=== PATIENT | male | born 1935 | race Caucasian/White ===

== ENCOUNTER 2020-08-08 16:00 | Emergency (ER) | payer MEDICARE, BC | END 2020-08-08 17:22 | disposition left against medical advice (07) | LOC: DL.ED 16:00 | DX: Z53.21 Procedure and treatment not carried out due to patient leaving prior to being seen by health care provider (principal) ==

== ENCOUNTER 2020-08-09 10:26 | Emergency (ER) | payer MEDICARE, BC ==
[2020-08-09 12:04] LABS: ANION GAP 10.3 mEq/L (7-13); CHLORIDE,CL 99 mmol/L (98-107); SODIUM,NA 135 mmol/L (136-145)
[2020-08-09] MEDS: Lidocaine 2% Jelly 10 ML Urojet MUCMEM ONE ×2 (12:56→13:52)
[2020-08-09 13:43] VITALS: BP 102/83; PULSE 66
--- NOTE | 2020-08-09 13:45 | EDM.PDOC ---
Scribed by Rosamaria Broussard 08/09/20 [id number] for Miriam Apple MD ED HPI GENERAL MEDICAL PROBLEM - General Chief Complaint: Genitourinary Problem Stated Complaint: KIDNEYS, UTI, Time Seen by Provider: 08/09/20 11:18 Source of Information: Reports: Patient, RN, RN Notes Reviewed History Limitations: Reports: No Limitations - History of Present Illness INITIAL COMMENTS - FREE TEXT/NARRATIVE: Patient presents to ED stating he was to clinic yesterday for burning with urination and poor urine output. No hematuria until they tried to unsuccessfully cath him. They did send him to ER at that time yesterday, because they did not have a coude cath. He had temp at clinic of 101.9F and then at home of 103.1F. He does have BPH and is on an alpha nilesh which he has not taken today or yesterday, he is not sure why. He denies any back pain, but has some left low pubic pain. Denies body aches, sob, cough, or any covid symptoms. Denies any COVID testing. Patient notes pain about half an hour prior to having to urinate as well as with urinating. No pain outside of this time. Patient has been having discomfort and raw skin in his private area for the last 2 weeks. Onset: Gradual Duration: Getting Worse Quality: Reports: Ache Severity: Severe Improves with: Reports: None Worsens with: Reports: None Associated Symptoms: Reports: No Other Symptoms - Related Data Allergies Allergy/AdvReac Type Severity Reaction Status Date / Time No Known Allergies Allergy Verified 10/04/18 12:45 Home Meds: Home Meds Aspirin [Adult Low Dose Aspirin EC] 81 mg PO DAILY 09/10/15 [History] Doxazosin [Cardura] 2 mg PO BEDTIME 09/10/15 [History] Dutasteride [Avodart] 0.5 mg PO DAILY 09/10/15 [History] Hydrochlorothiazide/Lisinopril [Lisinopril/HCTZ 20-12.5 MG] 1 tab PO DAILY 09/10/15 [History] Simvastatin [Zocor] 20 mg PO BEDTIME 09/10/15 [History] Past Medical History Cardiovascular History: Reports: High Cholesterol, Hypertension Genitourinary History: Reports: BPH, Prostate Disorder Social & Family History - Family History Family Medical History: Noncontributory - Tobacco Use Smoking Status *Q: Current Every Day Smoker Years of Tobacco use: 70 Packs/Tins Daily: 1 - Caffeine Use Caffeine Use: Reports: Coffee - Recreational Drug Use Recreational Drug Use: No - Living Situation & Occupation Occupation: Retired ED ROS GENERAL - Review of Systems Review Of Systems: Comprehensive ROS is negative, except as noted in HPI. ED EXAM, RENAL/ - Physical Exam Exam: See Below Exam Limited By: No Limitations General Appearance: Alert, WD/WN, No Apparent Distress Eye Exam: Bilateral Eye: EOMI, Normal Inspection, PERRL Ears: Normal External Exam, Hearing Grossly Normal Nose: Normal Inspection, Normal Mucosa, No Blood Throat/Mouth: Normal Inspection, Normal Lips, Normal Gums, Normal Oropharynx, Normal Voice, No Airway Compromise Head: Atraumatic, Normocephalic Neck: Normal Inspection, Supple, Non-Tender, Full Range of Motion Respiratory/Chest: No Respiratory Distress, Lungs Clear, Normal Breath Sounds, No Accessory Muscle Use, Chest Non-Tender Cardiovascular: Normal Peripheral Pulses, Regular Rate, Rhythm, No Edema, No Gallop, No JVD, No Murmur, No Rub GI/Abdominal: Normal Bowel Sounds, Soft, Non-Tender, No Organomegaly, No Distention, No Abnormal Bruit, No Mass (Male) Exam: Deferred Rectal (Males) Exam: Other (tender and boggy prostate) Back Exam: Normal Inspection, Full Range of Motion, NT Extremities: Normal Inspection, Normal Range of Motion, Non-Tender, Normal Capillary Refill, No Pedal Edema Neurological: Alert, Oriented, CN II-XII Intact, Normal Cognition, Normal Gait, Normal Reflexes, No Motor/Sensory Deficits Psychiatric: Normal Affect, Normal Mood Skin Exam: Warm, Dry, Intact, Normal Color, No Rash Lymphatic: No Adenopathy Course - Orders/Labs/Meds Orders: Active Orders 24 hr Category Date Time Status Bladder Scan [RC] ASDIRECTED Care 08/09/20 11:20 Active CULTURE BLOOD [BC] Stat Lab 08/09/20 11:23 Ordered CULTURE BLOOD [BC] Stat Lab 08/09/20 11:23 Ordered CULTURE URINE [RM] Stat Lab 08/09/20 12:51 Received Blood Culture x2 Reflex Set [OM.PC] Stat Oth 08/09/20 11:23 Ordered Labs: Laboratory Tests 08/09/20 08/09/20 08/09/20 Range/Units 11:35 11:35 12:51 WBC 20.8 H (5.0-10.0) 10^3/uL RBC 4.64 (4.6-6.2) 10^6/uL Hgb 15.3 (14.0-18.0) g/dL Hct 44.0 (40.0-54.0) % MCV 94.8 (80-100) fL MCH 33.0 (27.0-34.0) pg MCHC 34.8 (33.0-35.0) g/dL Plt Count 231 (150-450) 10^3/uL Neut % (Auto) 83.6 H (42.2-75.2) % Lymph % (Auto) 6.3 L (20.5-50.1) % [place] % (Auto) 9.8 H (2-8) % Eos % (Auto) 0.2 L (1.0-3.0) % Baso % (Auto) 0.1 (0.0-1.0) % Sodium 135 L (136-145) mmol/L Potassium 4.3 (3.5-5.1) mmol/L Chloride 99 (98-107) mmol/L Carbon Dioxide 30 (21-32) mmol/L Anion Gap 10.3 (7-13) mEq/L BUN 19 H (7-18) mg/dL Creatinine 1.39 H (0.70-1.30) mg/dL Est Cr Clr Drug Dosing TNP Estimated GFR (MDRD) 49 BUN/Creatinine Ratio 13.7 (No establ ref range) Glucose 124 H (74-99) mg/dL Calcium 9.1 (8.5-10.1) mg/dL Total Bilirubin 0.9 (0.2-1.0) mg/dL AST 14 L (15-37) U/L ALT 19 (16-63) U/L Alkaline Phosphatase 83 (46-116) U/L Total Protein 7.1 (6.4-8.2) g/dL Albumin 3.3 L (3.4-5.0) g/dL Globulin 3.8 Albumin/Globulin Ratio 0.87 Urine Color Yellow (YELLOW) Urine Appearance Cloudy (CLEAR) Urine pH 6.0 (5.0-9.0) Ur Specific [place] 1.025 (1.005-1.030) Urine Protein 100 H (NEGATIVE) Urine Glucose (UA) Negative (NEGATIVE) Urine Ketones Negative (NEGATIVE) Urine Occult Blood Moderate H (NEGATIVE) Urine Nitrite Negative (NEGATIVE) Urine Bilirubin Negative (NEGATIVE) Urine Urobilinogen 0.2 (0.2-1.0) mg/dL Ur Leukocyte Esterase Large H (NEGATIVE) Urine RBC 5-10 H /HPF Urine WBC Semi-packed H (0-5/HPF) /HPF Ur Epithelial Cells Few (NOT SEEN) /HPF Urine Bacteria Many H (0-FEW/HPF) /HPF Urine Mucus Not seen (NOT SEEN) /LPF Urine Other Meds: Medications Discontinued Medications Generic Name Dose Route Start Last Admin Trade Name Freq PRN Reason Stop Dose Admin Lidocaine HCl 10 ml 08/09/20 12:46 08/09/20 12:56 Xylocaine 2% Jelly MUCMEM 08/09/20 12:47 10 ml ONETIME ONE Administration Departure - Departure Time of Disposition: 13:43 Disposition: Home, Self-Care 01 Condition: Good Clinical Impression: Prostatitis - Discharge Information *PRESCRIPTION DRUG MONITORING PROGRAM REVIEWED*: Not Applicable *COPY OF PRESCRIPTION DRUG MONITORING REPORT IN PATIENT FÉLIX: Not Applicable Instructions: Prostatitis, [id number] Forms: ED Department Discharge Additional Instructions: Ciprofloxacin 500 mg BID for 6 weeks Follow up with PCP in 3-5 days - My Orders Last 24 Hours: My Active Orders 08/09/20 11:20 Bladder Scan [RC] ASDIRECTED 08/09/20 11:23 CULTURE BLOOD [BC] Stat CULTURE BLOOD [BC] Stat Blood Culture x2 Reflex Set [OM.PC] Stat 08/09/20 12:51 CULTURE URINE [RM] Stat - Assessment/Plan Last 24 Hours: My Active Orders 08/09/20 11:20 Bladder Scan [RC] ASDIRECTED 08/09/20 11:23 CULTURE BLOOD [BC] Stat CULTURE BLOOD [BC] Stat Blood Culture x2 Reflex Set [OM.PC] Stat 08/09/20 12:51 CULTURE URINE [RM] Stat Assessment:: 84 yo male with acute urinary tract infection, suspect prostatitis given history, labs and exam Plan: ciprofloxacin 500 mg BID for 6 weeks reviewed reasons to call/return to the ER fu with PCP in 3-5 days, or sooner if needed I have read and agree with the documentation that has been completed regarding this visit. By signing this record, I attest that the documentation was completed in my physical presence and is an accurate record of the encounter.
== END 2020-08-09 13:52 | disposition home or self-care (01) ==
LOC: DL.ED 10:26
DX: N41.9 Inflammatory disease of prostate, unspecified (principal); F17.210 Nicotine dependence, cigarettes, uncomplicated; E78.00 Pure hypercholesterolemia, unspecified; I10 Essential (primary) hypertension; Z79.82 Long term (current) use of aspirin; Z79.899 Other long term (current) drug therapy
CPT/HCPCS: 36415; 80053; 81001; 85025; 87040; 87086; 87088; 87186; 99283; 99284

== ENCOUNTER 2023-03-07 10:37 | Inpatient (IN) | payer MEDICARE, OTHER ==
[2023-03-07] MEDS ORDERED: Sodium Chloride 0.9% 10 ML Syringe FLUSH PRN (10:43)
[2023-03-07 11:01] LABS: BASOPHILS PERCENT AUTO 0.1 % (0.0-1.0); EOSINOPHILS PERCENT AUTO 0.4 % (1.0-3.0); HEMATOCRIT 38.4 % (40.0-54.0); HEMOGLOBIN 13.2 g/dL (14.0-18.0); LYMPHOCYTES PERCENT AUTO 7.8 % (20.5-50.1); MEAN CORPUSCULAR HEMOGLOBIN 32.4 pg (27.0-34.0); MEAN CORPUSCULAR HGB CONC 34.4 g/dL (33.0-35.0); MEAN CORPUSCULAR VOLUME 94.1 fL (80-100); MONOCYTES PERCENT AUTO 13.6 % (2-8); NEUTROPHILS PERCENT AUTO 78.1 % (42.2-75.2); PLATELET COUNT,PLT 272 10^3/uL (150-450); RED BLOOD CELL COUNT 4.08 10^6/uL (4.6-6.2); WHITE BLOOD CELL COUNT,WBC 13.6 10^3/uL (5.0-10.0)
[2023-03-07] MEDS ORDERED: Sodium Chloride 0.9% 1,000 ML IV ONE (11:16)
[2023-03-07 11:20] LABS: PROTHROMBIN TIME 10.4 SEC (9.0-12.0); PTT,PARTIAL THROMBOPLSTIN TIME 28.4 SEC (22.0-34.0)
[2023-03-07 11:21] LABS: B-TYPE NATRIURETIC PEPTIDE,BNP 443 pg/ml (0-100)
[2023-03-07 11:24] LABS: LACTIC ACID 1.7 mmol/L (0.4-2.0)
[2023-03-07 11:27] LABS: A/G RATIO 0.78; ALANINE AMINOTRANSFERASE,ALT 14 U/L (16-63); ALBUMIN 2.8 g/dL (3.4-5.0); ALKALINE PHOSPHATASE 77 U/L (46-116); AMYLASE 31 U/L (25-115); ANION GAP 14.8 mEq/L (7-13); ASPARTATE AMNIOTRANSFERASE,AST 15 U/L (15-37); BILIRUBIN TOTAL 0.8 mg/dL (0.2-1.0); BLOOD UREA NITROGEN,BUN 43 mg/dL (7-18); BUN/CREATININE RATIO 16.7 (No establ ref range); C-REACTIVE PROTEIN 16.9 mg/dL (0.0-0.9); CARBON DIOXIDE,CO2 27 mmol/L (21-32); CHLORIDE,CL 99 mmol/L (98-107); CREATININE 2.58 mg/dL (0.70-1.30); EST CRCL DRUG DOSING (CG) 20.43 mL/min; ESTIMATED GFR 23 mL/min (>=60); ETHANOL BLOOD MEDICAL < 3 mg/dL (0); GLUCOSE RANDOM 128 mg/dL (70-99); LIPASE 24 U/L (73-393); MAGNESIUM 1.2 mg/dL (1.8-2.4); PHOSPHORUS 3.7 mg/dL (2.6-4.7); POTASSIUM,K 3.8 mmol/L (3.5-5.1); PROTEIN TOTAL,TP 6.4 g/dL (6.4-8.2); SODIUM,NA 137 mmol/L (136-145)
[2023-03-07] MEDS ORDERED: Magnesium Oxide 400 MG Tab PO ONE (12:15)
[2023-03-07] MEDS ORDERED: Magnesium Hydroxide 400 MG/5 ML Susp 30 ML Cup PO PRN (12:57)
[2023-03-07] MEDS ORDERED: Acetaminophen 325 MG Tab PO PRN (12:57)
[2023-03-07] MEDS ORDERED: Acetaminophen/HYDROcodone 325-5 MG Tab PO PRN (12:57)
[2023-03-07] MEDS ORDERED: HYDROmorphone 0.5 MG/0.5 ML Syringe IVPUSH PRN (12:57)
[2023-03-07] MEDS ORDERED: Bisacodyl 5 MG Tab PO PRN (12:57)
[2023-03-07] MEDS ORDERED: Ondansetron 4 MG/2 ML SDV IVPUSH PRN (12:57)
[2023-03-07] MEDS ORDERED: Polyethylene Glycol 3350 Powder 17 GM Packet PO PRN (12:57)
[2023-03-07] MEDS ORDERED: Midodrine 2.5 MG Tab PO PRN (13:42)
[2023-03-07] MEDS ORDERED: guaiFENesin/Dextromethorphan 100-10 MG/5 ML Soln 5 ML Cup PO PRN (14:06)
[2023-03-07] MEDS ORDERED: Magnesium Sulfate/Water 2 GM in Premix Bag 1 BAG IV ONE (16:00)
[2023-03-07] MEDS: Sodium Chloride 0.9% 1,000 ML IV SCH (16:05)
[2023-03-07 16:27] LABS: APPEARANCE,URINE CLEAR (CLEAR); BILIRUBIN,URINE NEGATIVE (NEGATIVE); COLOR,URINE YELLOW (YELLOW); GLUCOSE,URINE NEGATIVE (NEGATIVE); KETONES,URINE NEGATIVE (NEGATIVE); LEUKOCYTE ESTERASE,URINE NEGATIVE (NEGATIVE); NITRITE,URINE NEGATIVE (NEGATIVE); OCCULT BLOOD,URINE TRACE-INTACT (NEGATIVE); PH,URINE 5.5 (5.0-9.0); PROTEIN,URINE TRACE (NEGATIVE)
[2023-03-07 16:30] LABS: AMPHETAMINES,URINE NEGATIVE (NEGATIVE); BARBITURATES,URINE NEGATIVE (NEGATIVE); BENZODIAZEPINE,URINE NEGATIVE (NEGATIVE); MDMA (ECSTASY), URINE NEGATIVE (NEGATIVE); METHADONE,URINE NEGATIVE (NEGATIVE); METHAMPHETAMINES,URINE NEGATIVE (NEGATIVE); OPIATES,URINE NEGATIVE (NEGATIVE); OXYCODONE,URINE NEGATIVE (NEGATIVE); PHENCYCLIDINE,URINE NEGATIVE (NEGATIVE); TCA,URINE NEGATIVE (NEGATIVE)
[2023-03-07 16:39] LABS: BACTERIA,URINE RARE /HPF (0-FEW/HPF); EPITHELIAL CELLS,URINE RARE /HPF (NOT SEEN); RBC,URINE 0-5 /HPF (0-5); WBC,URINE 0-5 /HPF (0-5/HPF)
[2023-03-07 16:40] LABS: HYALINE CASTS,URINE FEW; MUCUS,URINE RARE /LPF (NOT SEEN)
[2023-03-07] MEDS: Carvedilol 6.25 MG Tab PO SCH (18:11)
[2023-03-07] MEDS: Piperacillin/Tazobactam 3.375 GM in Sodium Chloride 0.9% 100 ML IV SCH ×2 (18:11→23:22)
[2023-03-07] MEDS: Saccharomyces Boulardii (Probiotic) 250 MG Cap PO SCH (21:24)
[2023-03-07] MEDS: Albuterol/Ipratropium 3.0-0.5 MG/3 ML Neb Soln NEB PRN (23:08)
[2023-03-08] MEDS: Sodium Chloride 0.9% 1,000 ML IV SCH (04:35)
[2023-03-08 04:53] LABS: BASOPHILS PERCENT AUTO 0.2 % (0.0-1.0); EOSINOPHILS PERCENT AUTO 0.5 % (1.0-3.0); HEMATOCRIT 32.4 % (40.0-54.0); HEMOGLOBIN 11.1 g/dL (14.0-18.0); LYMPHOCYTES PERCENT AUTO 8.8 % (20.5-50.1); MEAN CORPUSCULAR HEMOGLOBIN 32.3 pg (27.0-34.0); MEAN CORPUSCULAR HGB CONC 34.3 g/dL (33.0-35.0); MEAN CORPUSCULAR VOLUME 94.2 fL (80-100); MONOCYTES PERCENT AUTO 16.3 % (2-8); NEUTROPHILS PERCENT AUTO 74.2 % (42.2-75.2); PLATELET COUNT,PLT 248 10^3/uL (150-450); RED BLOOD CELL COUNT 3.44 10^6/uL (4.6-6.2); WHITE BLOOD CELL COUNT,WBC 9.4 10^3/uL (5.0-10.0)
[2023-03-08] MEDS: Piperacillin/Tazobactam 3.375 GM in Sodium Chloride 0.9% 100 ML IV SCH ×4 (05:33→23:32)
[2023-03-08 05:38] LABS: ALBUMIN 2.2 g/dL (3.4-5.0); ANION GAP 11.5 mEq/L (7-13); BILIRUBIN TOTAL 0.8 mg/dL (0.2-1.0); BUN/CREATININE RATIO 19.6 (No establ ref range); CALCIUM 8.1 mg/dL (8.5-10.1); CREATININE 1.89 mg/dL (0.70-1.30); EST CRCL DRUG DOSING (CG) 28.77 mL/min; MAGNESIUM 1.6 mg/dL (1.8-2.4); POTASSIUM,K 3.5 mmol/L (3.5-5.1); PROTEIN TOTAL,TP 5.2 g/dL (6.4-8.2); T4 FREE 1.33 ng/dL (0.76-1.46); TSH ULTRASENSITIVE 1.06 uIU/mL (0.36-3.74)
[2023-03-08 05:40] LABS: A/G RATIO 0.73; C-REACTIVE PROTEIN 15.2 mg/dL (0.0-0.9)
[2023-03-08] MEDS: Carvedilol 6.25 MG Tab PO SCH (08:06)
[2023-03-08] MEDS: Calcitriol 0.25 MCG Cap PO SCH (08:07)
[2023-03-08] MEDS: Saccharomyces Boulardii (Probiotic) 250 MG Cap PO SCH ×2 (08:07→20:13)
[2023-03-08] MEDS: Aspirin 81 MG Tab.EC PO SCH (08:07)
[2023-03-08] MEDS ORDERED: Non-Formulary Medication 1 Each (Dutasteride [Avodart] 0.5 MG Cap) PO SCH (09:00)
[2023-03-08] MEDS ORDERED: Aspirin 81 MG Tab.EC PO SCH (09:00)
[2023-03-08] MEDS: Pantoprazole 40 MG Tab.CR PO SCH (09:17)
[2023-03-08] MEDS ORDERED: Carboxymethylcellulose Sodium 1% Ophth Gel 0.4 ML UD EYEBOTH PRN (09:42)
[2023-03-08] MEDS: Midodrine 2.5 MG Tab PO SCH ×2 (10:34→16:06)
[2023-03-08] MEDS ORDERED: Magnesium Sulfate/Water 2 GM in Premix Bag 1 BAG IV ONE (11:00)
[2023-03-08] MEDS ORDERED: Atropine 0.4 MG/ML SDV IVPUSH ONE (14:58)
[2023-03-08] MEDS ORDERED: guaiFENesin 600 MG Tab.ER PO ONE (15:00)
[2023-03-08] MEDS: Albuterol/Ipratropium 3.0-0.5 MG/3 ML Neb Soln NEB PRN (15:32)
[2023-03-08] MEDS ORDERED: Azithromycin 500 MG in Sodium Chloride 0.9% 250 ML IV ONE (16:00)
[2023-03-08] MEDS ORDERED: methylPREDNISolone Sodium Succinate 40 MG/1 ML SDV IVPUSH ONE (17:00)
[2023-03-08] MEDS: Finasteride 5 MG Tab PO SCH (17:01)
[2023-03-08] MEDS ORDERED: Carvedilol 6.25 MG Tab PO SCH (18:00)
[2023-03-08] MEDS: guaiFENesin 600 MG Tab.ER PO SCH (20:13)
[2023-03-08] MEDS ORDERED: Doxazosin 2 MG Tab PO SCH (21:00)
[2023-03-09] MEDS: Piperacillin/Tazobactam 3.375 GM in Sodium Chloride 0.9% 100 ML IV SCH ×2 (05:10→11:00)
[2023-03-09] MEDS: Sodium Chloride 0.9% 1,000 ML IV SCH (05:13)
[2023-03-09] MEDS: Pantoprazole 40 MG Tab.CR PO SCH (05:17)
[2023-03-09] MEDS: Midodrine 2.5 MG Tab PO SCH ×2 (05:17→10:53)
[2023-03-09 05:37] LABS: HEMATOCRIT 35.7 % (40.0-54.0); HEMOGLOBIN 12.2 g/dL (14.0-18.0); MEAN CORPUSCULAR HEMOGLOBIN 32.1 pg (27.0-34.0); MEAN CORPUSCULAR HGB CONC 34.2 g/dL (33.0-35.0); MEAN CORPUSCULAR VOLUME 93.9 fL (80-100); PLATELET COUNT,PLT 263 10^3/uL (150-450); WHITE BLOOD CELL COUNT,WBC 8.9 10^3/uL (5.0-10.0)
[2023-03-09 05:53] LABS: BASOPHILS PERCENT AUTO 0.1 % (0.0-1.0); LYMPHOCYTES PERCENT AUTO 5.5 % (20.5-50.1); MONOCYTES PERCENT AUTO 6.8 % (2-8); NEUTROPHILS PERCENT AUTO 87.6 % (42.2-75.2)
[2023-03-09 05:54] LABS: LYMPHOCYTES PERCENT MAN 3 % (20-50); MONOCYTES PERCENT MAN 3 % (2-8); SEG NEUTROPHILS PERCENT MAN 94 % (42-75)
[2023-03-09] MEDS ORDERED: methylPREDNISolone Sodium Succinate 40 MG/1 ML SDV IVPUSH SCH (06:00)
[2023-03-09 07:44] LABS: ALBUMIN 2.1 g/dL (3.4-5.0); ANION GAP 12.7 mEq/L (7-13); BILIRUBIN TOTAL 0.7 mg/dL (0.2-1.0); BUN/CREATININE RATIO 19.7 (No establ ref range); CALCIUM 8.2 mg/dL (8.5-10.1); CREATININE 1.52 mg/dL (0.70-1.30); EST CRCL DRUG DOSING (CG) 35.78 mL/min; MAGNESIUM 1.8 mg/dL (1.8-2.4); POTASSIUM,K 3.7 mmol/L (3.5-5.1); PROTEIN TOTAL,TP 5.4 g/dL (6.4-8.2)
[2023-03-09 08:26] LABS: A/G RATIO 0.64; C-REACTIVE PROTEIN 14.4 mg/dL (0.0-0.9)
[2023-03-09] MEDS: guaiFENesin 600 MG Tab.ER PO SCH (08:43)
[2023-03-09] MEDS: Calcitriol 0.25 MCG Cap PO SCH (08:43)
[2023-03-09] MEDS: Aspirin 81 MG Tab.EC PO SCH (08:43)
[2023-03-09] MEDS: Saccharomyces Boulardii (Probiotic) 250 MG Cap PO SCH (08:43)
[2023-03-09] MEDS: Finasteride 5 MG Tab PO SCH (08:43)
[2023-03-09] MEDS ORDERED: Azithromycin 500 MG in Sodium Chloride 0.9% 250 ML IV SCH (09:00)
[2023-03-09] MEDS ORDERED: Formoterol/Mometasone 100-5 MCG 8.8 GM Inhaler IH SCH (10:00)
[2023-03-09 11:48] VITALS: BP 113/59; PULSE 64
== END 2023-03-09 13:00 | DRG 864 ==
LOC: DL.ED 10:37 → DL.MS 12:12 → DL.ED 12:29 → DL.MS 12:41 → UNDOADMIN 12:41
PROVIDERS: ADMIT Internal Medicine; ATTEND Internal Medicine
DX: R65.10 Systemic inflammatory response syndrome (SIRS) of non-infectious origin without acute organ dysfunction (principal); E46 Unspecified protein-calorie malnutrition; N17.9 Acute kidney failure, unspecified; I13.0 Hypertensive heart and chronic kidney disease with heart failure and stage 1 through stage 4 chronic kidney disease, or unspecified chronic kidney disease; I50.32 Chronic diastolic (congestive) heart failure; J44.1 Chronic obstructive pulmonary disease with (acute) exacerbation; I95.1 Orthostatic hypotension; E11.22 Type 2 diabetes mellitus with diabetic chronic kidney disease; I49.5 Sick sinus syndrome; I48.0 Paroxysmal atrial fibrillation; E78.5 Hyperlipidemia, unspecified; N18.30 Chronic kidney disease, stage 3 unspecified; M19.90 Unspecified osteoarthritis, unspecified site; J40 Bronchitis, not specified as acute or chronic; R12 Heartburn; I65.21 Occlusion and stenosis of right carotid artery; R29.6 Repeated falls; E78.00 Pure hypercholesterolemia, unspecified; D63.1 Anemia in chronic kidney disease; N32.0 Bladder-neck obstruction; E11.65 Type 2 diabetes mellitus with hyperglycemia; E88.09 Other disorders of plasma-protein metabolism, not elsewhere classified; N40.0 Benign prostatic hyperplasia without lower urinary tract symptoms; E83.42 Hypomagnesemia; Z68.24 Body mass index [BMI] 24.0-24.9, adult; F17.210 Nicotine dependence, cigarettes, uncomplicated; Z79.82 Long term (current) use of aspirin; Z88.1 Allergy status to other antibiotic agents; Z79.899 Other long term (current) drug therapy
CPT/HCPCS: 36415; 51702; 71045; 76770; 80053; 80305-QW; 80307; 81001; 82150; 82306; 83605; 83690; 83735; 83880; 84100; 84145; 84439; 84443; 84484; 85025; 85610; 85730; 86140; 87040; 93005; 93010; 93880; 94640; 96360; 97161-GP; 97165-GO; 97530-GO; 99222; 99232; 99238; 99284; 99285-25; A9270-GY; J0456; J0461; J2543; J2920; J3475; J3490; J7030; J7050; J7620-GY